=== PATIENT | female | born 1930 | race Hispanic/Latino ===

== ENCOUNTER 2017-12-26 03:33 | Emergency (ER) | payer MEDICARE ==
[2017-12-26 03:33] VITALS: BMI 20.9
[2017-12-26 03:59] VITALS: BP 126/76; PULSE 71; RESP 18; TEMP 98.2; O2SAT 100
[2017-12-26] MEDS ORDERED: Bacitracin 500 Units/gm Oint Foilpak UD TOP ONE (04:18)
--- NOTE | 2017-12-26 04:21 | C.PDOC ---
History Of Present Illness 87 year old female with a Hx of varicose veins presents to the ER with a complaint of bleeding from her right leg. Patient states she was putting on her pajamas when she bumped her leg and began bleeding. Denies pain, weakness, or numbness. Time Seen by Provider: 12/26/17 03:49 Chief Complaint (Nursing): Lower Extremity Problem/Injury History Per: Patient History/Exam Limitations: no limitations Onset/Duration Of Symptoms: Hrs Current Symptoms Are (Timing): Still Present Recent travel outside of the [place]: No Past Medical History Reviewed: Historical Data, Nursing Documentation, Vital Signs Vital Signs: Last Vital Signs Temp 98.2 F 12/26/17 03:48 Pulse 71 12/26/17 03:48 Resp 18 12/26/17 03:48 BP 126/76 12/26/17 03:48 Pulse Ox 100 12/26/17 04:31 - Medical History PMH: Hypothyroidism, Osteoporosis Surgical History: No Surg Hx - [facility] Procedures APPLICATION OF SPLINT (08/22/13) Family History: States: Unknown Family Hx - Social History Hx Alcohol Use: Yes Hx Substance Use: No - Immunization History Hx Tetanus Toxoid Vaccination: No Hx Influenza Vaccination: Yes Hx Pneumococcal Vaccination: Yes Review Of Systems Skin: Positive for: Other (Bleeding from right leg) Neurological: Negative for: Weakness, Numbness Physical Exam - Physical Exam Appears: Non-toxic, No Acute Distress Skin: Warm, Dry Head: Atraumatic, Normacephalic Eye(s): bilateral: Normal Inspection, EOMI Nose: Normal Oral Mucosa: Moist Neck: Normal ROM, Supple Chest: Symmetrical Respiratory: No Accessory Muscle Use Extremity: Normal ROM (x4), No Tenderness, Capillary Refill (<2 seconds), No Deformity, No Swelling, Other ((+) scab to anterior right warren. No active bleeding.) Pulses: Left Dorsalis Pedis: Normal, Right Dorsalis Pedis: Normal Neurological/Psych: Oriented x3, Normal Speech, Normal Motor, Normal Sensation Gait: Steady ED Course And Treatment O2 Sat by Pulse Oximetry: 100 (Room air) Pulse Ox Interpretation: Normal Progress Note: Bacitracin and dressing applied to wound. PT has no complaints. Patient with no pain or active bleeding in the ER, she was given wound care instruction and advised to follow up with PMD in 1-2. Disposition - Disposition Disposition: HOME/ ROUTINE Disposition Time: 04:21 Condition: STABLE Instructions: Wound Care (DC) Forms: [employer] (Armenian) - Clinical Impression Clinical Impression: Leg wound, right - PA / CUTTING INSPECTOR / Resident Statement MD/DO has reviewed & agrees with the documentation as recorded. - Scribe Statement The provider has reviewed the documentation as recorded by the Scribe Edmundo Tejeda All medical record entries made by the Scribe were at my direction and personally dictated by me. I have reviewed the chart and agree that the record accurately reflects my personal performance of the history, physical exam, medical decision making, and the department course for this patient. I have also personally directed, reviewed, and agree with the discharge instructions and disposition.
[2017-12-26] MEDS ORDERED: Bacitracin 500 Units/gm Oint Foilpak UD ONE (04:33)
== END 2017-12-26 04:44 | disposition home or self-care (01) ==
LOC: C.ER 03:33
DX: S81.801A Unspecified open wound, right lower leg, initial encounter (principal); X58.XXXA Exposure to other specified factors, initial encounter; Y92.9 Unspecified place or not applicable